=== PATIENT | female | born 1950 | race Caucasian/White ===

== ENCOUNTER → 2019-04-06 | Outpatient (CLI) | payer OTHER | END | disposition home or self-care (01) | LOC: PCVCCLINIC 10:00 | PROVIDERS: ATTEND Internal Medicine Cardiovascular Disease | DX: I10 Essential (primary) hypertension (principal); R06.09 Other forms of dyspnea; R00.1 Bradycardia, unspecified; E78.00 Pure hypercholesterolemia, unspecified; E78.5 Hyperlipidemia, unspecified | CPT/HCPCS: 93005; G0463 ==

== ENCOUNTER → 2019-07-11 | Outpatient (CLI) | payer OTHER | END | disposition home or self-care (01) | LOC: PCVCCLINIC 13:30 | PROVIDERS: ATTEND Internal Medicine Cardiovascular Disease | DX: I10 Essential (primary) hypertension (principal); E78.00 Pure hypercholesterolemia, unspecified; R00.1 Bradycardia, unspecified | CPT/HCPCS: 93005; G0463 ==